=== PATIENT | male | born 1970 | race American Indian/Alaskan Native ===

== ENCOUNTER 2017-11-01 07:34 | Day surgery (SDC) | payer OTHER ==
[~2017-11-01 07:34] MED LIST: ANCEF/STERILE WATER 2 GM/20 ML 2 GM/20 ML SYRINGE IV NR; NACL 0.9% 1000 ML 1,000 ML IV SCH
[2017-11-01] MEDS ORDERED: PAPAVERINE ONE (07:46)
[2017-11-01] MEDS ORDERED: HEPARIN 10,000 UNITS/10 ML ONE (07:46)
[2017-11-01] MEDS ORDERED: NACL 0.9% 500 ML 500 ML ONE (07:46)
[2017-11-01] MEDS ORDERED: MARCAINE 0.5% INFILTRATI ONE ×2 (07:46→08:56)
[2017-11-01] MEDS ORDERED: NITROGLYCERIN SYRINGE 3 ML ONE (07:47)
[2017-11-01] MEDS ORDERED: PROTAMINE SULFATE ONE (07:48)
[2017-11-01] MEDS ORDERED: SODIUM BICARBONATE ONE (07:48)
[2017-11-01] MEDS ORDERED: XYLOCAINE 1% 20 mL ONE (07:48)
[2017-11-01] MEDS ORDERED: RIFADIN ONE (08:04)
--- NOTE | 2017-11-01 08:13 | Anesthesia Day of Surgery ---
Anesthesia Day of Surgery - Day of Surgery Patient Examined: Yes Patient H&P Reviewed: Yes Patient is NPO: Yes
[2017-11-01] MEDS ORDERED: DILAUDID IV PRN (08:15)
[2017-11-01] MEDS ORDERED: SUBLIMAZE IV PRN (08:15)
[2017-11-01] MEDS ORDERED: ZOFRAN IV PRN (08:15)
--- NOTE | 2017-11-01 08:15 | Anesthesia Consultation ---
Anesthesia Consult and Med Hx Date of service: 11/01/17 - Airway Anesthetic Teeth Evaluation: Poor ROM Head & Neck: Adequate Mental/Hyoid Distance: Adequate Mallampati Class: Class II Intubation Access Assessment: Probably Good - Pulmonary Exam CTA: Yes - Cardiac Exam Cardiac Exam: RRR - Pre-Operative Health Status ASA Pre-Surgery Classification: ASA3 Proposed Anesthetic Plan: General - Cardiovascular System Hx Hypertension: Yes - Gastrointestinal Hx Gastroesophageal Reflux Disease: Yes - Other Systems Hx Obesity: Yes
[2017-11-01 08:30] LABS: Basophils # (Auto) 0.1 K/mm3 (0.0-0.1); Basophils % (Auto) 0.9 % (0.0-1.8); Eosinophils # (Auto) 0.4 K/mm3 (0.0-0.4); Eosinophils % (Auto) 5.6 % (0.0-4.3); Hematocrit 34.6 % (35.5-45.6); Hemoglobin 11.5 gm/dl (11.8-15.2); Lymphocytes # (Auto) 1.9 K/mm3 (1.2-5.4); Lymphocytes % (Auto) 24.3 % (13.4-35.0); Mean Corpuscular HGB Conc 33 % (32-34); Mean Corpuscular Hemoglobin 29 pg (28-32); Mean Corpuscular Volume 87 fl (84-94); Monocytes # (Auto) 0.7 K/mm3 (0.0-0.8); Monocytes % (Auto) 8.9 % (0.0-7.3); Platelet Count 212 K/mm3 (140-440); Red Blood Count 3.97 M/mm3 (3.65-5.03); Red Cell Distribution Width 14.1 % (13.2-15.2)
[2017-11-01 08:45] LABS: Calcium 8.9 mg/dL (8.4-10.2)
[2017-11-01] MEDS ORDERED: DIPRIVAN 10 MG/ML IV ONE (08:51)
[2017-11-01] MEDS ORDERED: DECADRON ONE (08:52)
[2017-11-01] MEDS ORDERED: DILAUDID ONE (08:52)
[2017-11-01] MEDS ORDERED: XYLOCAINE MPF 2% ONE (08:52)
[2017-11-01] MEDS ORDERED: ZOFRAN ONE (08:52)
[2017-11-01] MEDS ORDERED: NACL 0.9% IR ONE (08:56)
[2017-11-01] MEDS ORDERED: HEPARIN 10,000 UNITS/10 ML IV ONE (08:56)
[2017-11-01] MEDS ORDERED: NACL 0.9% 500 ML IV ONE (08:56)
[2017-11-01] MEDS ORDERED: VERSED IV NR (09:00)
[2017-11-01] MEDS ORDERED: PEPCID IV NR (09:00)
[2017-11-01] MEDS ORDERED: ePHEDrine SULFATE ONE (09:51)
--- NOTE | 2017-11-01 10:18 | Short Stay Summary ---
Short Stay Documentation Date of service: 11/01/17 Narrative H&P: See H&P - History H&P: obtained from office - Allergies and Medications Current Medications: Allergies No Known Allergies Allergy (Unverified 04/14/16 18:49) Home Medications Medication Instructions Recorded Confirmed Last Taken Type Carvedilol [Carvedilol] 6.25 mg PO BID 11/01/17 11/01/17 11/01/17 06:30 History Lisinopril 20 mg PO DAILY 11/01/17 11/01/17 11/01/17 06:30 History glipiZIDE [Glipizide] 5 mg PO DAILY 11/01/17 11/01/17 10/31/17 07:00 History metFORMIN 1,000 mg PO DAILY 11/01/17 11/01/17 10/31/17 07:00 History Active Medications Famotidine (Pepcid) 20 mg IV PREOP NR Stop: 11/01/17 23:59 Last Admin: 11/01/17 08:33 Dose: 20 mg Fentanyl (Sublimaze) 50 mcg IV Q5MIN PRN PRN Reason: Pain , Severe (7-10) Hydromorphone HCl (Dilaudid) 0.25 mg IV Q10MIN PRN PRN Reason: Pain, Moderate (4-6) Cefazolin Sodium (Ancef/Sterile Water 2 Gm/20 Ml) 2 gm in 20 mls @ 80 mls/hr IV PREOP NR PRN Reason: Protocol Stop: 11/01/17 23:59 Sodium Chloride (Nacl 0.9% 1000 Ml) 1,000 mls @ 42 mls/hr IV DIRECT ONEIDA Last Admin: 11/01/17 08:32 Dose: 42 mls/hr Midazolam HCl (Versed) 2 mg IV PREOP NR Stop: 11/01/17 23:59 Last Admin: 11/01/17 08:41 Dose: 2 mg Ondansetron HCl (Zofran) 4 mg IV ONCE PRN PRN Reason: Nausea And Vomiting - Brief post op/procedure progress note Date of procedure: 11/01/17 Pre-op diagnosis: End-Stage Disease Post-op diagnosis: same Procedure: Creation of Left Brachiocephalic Arteriovenous Fistula Anesthesia: GETDeandre Surgeon: YOSEF COOPER Estimated blood loss: minimal Pathology: none Condition: stable - Disposition Condition at discharge: Good Short Stay Discharge Plan Activity: other (no lifting with left arm) Wound: open to air, other (okay to wash the wound with soap and water but do not soak in water) Follow up with: YOSEF COOPER MD [Staff Physician] - 14 Days Prescriptions: HYDROcodone/APAP 7.5-325 [[place] 7.5/325] 1 each PO Q6HR PRN #40 tablet PRN Reason: Pain
--- NOTE | 2017-11-01 10:20 | Operative Report ---
Operative Report Operative Report: Date of procedure: 11/01/2017 Pre-operative diagnosis: End-Stage Renal Disease Post-operative diagnosis: End-Stage Renal Disease Procedure(s): Creation of Left Brachial Artery to Cephalic Vein Arteriovenous Fistula Surgeon: Burak Franklin MD Drugless Doctor: None Anesthesia: Gen. Endotracheal Anesthesia EBL: Minimal Counts: Correct Complications: None Condition: Stable Findings: Successful creation of left brachiocephalic arteriovenous fistula with palpable thrill at the completion of the case. Specimen: None Indications: The patient is a 46-year-old male with a history of end-stage renal disease currently on hemodialysis through a right internal jugular permacath. He is in need of long-term access and had adequate vein for creation of AV fistula. He was given the risks, benefits, and alternative procedures and consented to the procedure. Description of Procedure: The patient was brought to the operating room and laid in supine position after general endotracheal anesthesia was administered the patient was prepped and draped in normal sterile fashion. After anesthetizing the skin a transverse incision was created just below the antecubital crease. Dissection was carried down to the the cephalic vein using sharp dissection. The vein was dissected out both proximally and distally and suture ligated and divided distally. I then ran a 3 Pino proximally in the vein, to ensure patency of the vein. Then flushed the vein with heparinized saline and flow was controlled with a bulldog clamp. I then dissected out the brachial artery through this incision circumferentially both proximal and distal and controlled the artery with vessel loops. I then placed the vessel loops on tension controlling the flow through the artery and created an arteriotomy using an 11 blade and Anderson scissors. I created an end to side anastomosis between the cephalic vein and brachial artery using a 6-0 Prolene in running fashion. Prior to completing the anastomosis I flushed the artery both proximally and distally and then advanced a 3 Pino proximally to break the spasm in the artery. I then completed the anastomosis and removed all vessel loops allowing flow into the fistula which had an excellent thrill. I achieved hemostasis with a combination of direct pressure and electrocautery. Once hemostasis was achieved I anesthetized the wound with Marcaine. I then closed the wound in 2 layers and 3-0 Vicryl in a running fashion to close the deep dermal layer and 4- 0 Monocryl in a running fashion in the subcuticular layer. I dressed the wound with Surgicel. The patient tolerated the procedure well, all sponge needle and instrument counts were correct. The patient was taken to recovery in stable condition.
--- NOTE | 2017-11-01 10:25 | Post Anesthesia Evaluation ---
- Post Anesthesia Evaluation Patient Participated: Yes Airway Patent: Yes Stable Respiratory Function: Yes Nausea/Vomiting: No Temp > 96.8F: Yes Pain Manageable: Yes Adequeate Hydration: Yes Anesthesia Complications: No
--- NOTE | 2017-11-01 10:26 | Post Anesthesia Evaluation ---
- Post Anesthesia Evaluation Patient Participated: Yes Airway Patent: Yes Stable Respiratory Function: Yes Nausea/Vomiting: No Temp > 96.8F: Yes Pain Manageable: Yes Adequeate Hydration: Yes Anesthesia Complications: No Block Receding Appropriately: Not Applicable Patient on Ventilator: No
[2017-11-01 12:02] VITALS: BP 173/84
== END 2017-11-01 11:52 | disposition home or self-care (01) ==
LOC: OR 07:34
PROVIDERS: ATTEND Surgery Vascular Surgery
DX: I12.0 Hypertensive chronic kidney disease with stage 5 chronic kidney disease or end stage renal disease (principal); E11.22 Type 2 diabetes mellitus with diabetic chronic kidney disease; N18.6 End stage renal disease; K21.9 Gastro-esophageal reflux disease without esophagitis; E66.9 Obesity, unspecified; Z68.27 Body mass index [BMI] 27.0-27.9, adult
CPT/HCPCS: 36415; 36821; 80048; 82962; 85025; C1757; J0690; J1100; J1170; J1644; J2250; J2405; J2440; J2704; J2720; J3490; J7030; J7040

== ENCOUNTER 2019-12-24 12:55 | Outpatient (CLI) | payer MEDICARE ==
--- NOTE | 2019-12-24 19:05 | Vascular Lab Report ---
VL venous duplex UE LT INDICATION / CLINICAL INFORMATION: DEEP VEIN THROMBOSIS. COMPARISON: None available. FINDINGS: No evidence of deep vein thrombosis. The surgically created brachial artery-cephalic vein fistula is patent. IMPRESSION: 1. Negative study. Signer Name: Isrrael Salinas MD Signed: 12/24/2019 7:00 PM Workstation Name: [id number]
== END 2019-12-24 12:56 | disposition home or self-care (01) ==
LOC: VAS 12:55
PROVIDERS: ATTEND Internal Medicine Nephrology
DX: I82.622 Acute embolism and thrombosis of deep veins of left upper extremity (principal)

== ENCOUNTER 2020-01-02 09:09 | Observation (INO) | payer MEDICARE | END 2020-01-03 14:19 | disposition home or self-care (01) | LOC: ED 09:09 → 3A 11:41 | PROVIDERS: ADMIT Internal Medicine | DX: I12.0 Hypertensive chronic kidney disease with stage 5 chronic kidney disease or end stage renal disease (principal); E11.22 Type 2 diabetes mellitus with diabetic chronic kidney disease; N18.6 End stage renal disease; E87.2 Acidosis; E87.5 Hyperkalemia; Z99.2 Dependence on renal dialysis; Z79.4 Long term (current) use of insulin | CPT/HCPCS: 36415; 70450; 71045; 80048; 80061; 80074; 80076; 82140; 82550; 82553; 82962; 83735; 83880; 84100; 84484; 85025; 85610; 85730; 87116; 93005; 93010; 96365; 96375; 99291; G0257; G0378; J0885; J1200 ==